=== PATIENT | female | born 1935 | race Caucasian/White ===

== ENCOUNTER 2018-10-06 10:04 | Observation (INO) ==
--- NOTE | 2018-10-06 10:08 | Emergency Department Note ---
Disposition Clinical Impression: Chest pain Qualifiers: Chest pain type: unspecified Qualified Code(s): R07.9 - Chest pain, unspecified Disposition: Admitted As Inpatient Condition: Fair Time of Disposition: 21:06 General Adult HPI - General Stated complaint: CP Time Seen by Provider: 10/06/18 10:08 Source: patient Mode of arrival: ambulatory Limitations: no limitations Nursing Notes Reviewed: Yes Vital Signs Reviewed: Yes - History of Present Illness HPI Narrative: 83-year-old female past medical history of Graves' disease with cardiac ablation due to tachycardia performed 25 years ago patient is also status post 4 months after a hip surgery states that she has had decreased mobilization due to the recent surgical intervention. Patient denies any significant cardiac history since the event. Patient stated that at approximately 7 AM this morning she woke to the bathroom and noticed that she had 5 out of 10 nagging chest pain left side of her chest to the left of for her border of the pectoralis major musculature. Patient states she initially believed this pain was due to heartburn and took 4 Tums which she states mildly relieved her symptoms, however the symptoms then returned. Patient also states she has a history of constipation believe the pain could be due to that as well. Patient denies any radiation of this pain, she denies shortness of breath associated with it or any neurological symptoms including headache dizziness or difficulty with ambulation. Patient's had no abnormal bleeding, no recent fevers or chills no abdominal pain nausea or vomiting. Patient has no other concerns or complaints at this time. Patient states that the pain has been intermittent in nature but is still occurring. - Related Data Home Medications Medication Instructions Recorded Confirmed Acetaminophen [Tylenol Arthritis] 650 mg PO Q4H PRN 10/06/18 10/06/18 Amitriptyline [Elavil] 25 mg PO TID PRN 10/06/18 10/06/18 Furosemide [Lasix] 40 mg PO DAILY 10/06/18 10/06/18 Losartan/Hydrochlorothiazide 1 tab PO DAILY 10/06/18 10/06/18 [Losartan-Hctz 100-12.5 mg Tab] Metoprolol Succinate [Toprol Xl] 25 mg PO DAILY 10/06/18 10/06/18 Mirabegron [Myrbetriq] 50 mg PO DAILY 10/06/18 10/06/18 Multivit-Min/FA/Lycopen/Lutein 1 each PO DAILY 10/06/18 10/06/18 [Centrum Silver Tablet] Non-Formulary Medication 1 each PO BID 10/06/18 10/06/18 [place]-3/Dha/Epa/Fish Oil [Fish Oil 2 each PO BID 10/06/18 10/06/18 1,000 mg Softgel] Oxaprozin [Daypro] 600 mg PO DAILY 10/06/18 10/06/18 Perphenazine 4 mg PO TID PRN 10/06/18 10/06/18 Rosuvastatin Calcium 10 mg PO HS 10/06/18 10/06/18 Spironolactone 25 mg PO DAILY 10/06/18 10/06/18 Ubidecarenone/Vit E Acetate [Co 1 each PO DAILY 10/06/18 10/06/18 Q-10 100 mg Softgel] Vitamin E 400 unit PO DAILY 10/06/18 10/06/18 clonazePAM [Clonazepam] 2 mg PO HS 10/06/18 10/06/18 Allergies Allergy/AdvReac Type Severity Reaction Status Date / Time Sulfa (Sulfonamide Allergy Rash Verified 10/06/18 11:39 Antibiotics) Review of Systems: *See History of Present Illness for more detail Constitutional: Denies: fever, chills Cardiovascular: Admits: chest pain Respiratory: Denies: dyspnea, cough, hemoptysis Gastrointestinal: Denies: abdominal pain, nausea, vomiting, diarrhea, constipation, hematemesis, melena, hematochezia Genitourinary: Denies: hematuria Musculoskeletal: Denies: back pain, neck pain Neurological: Denies: headache, weakness, lightheadedness/dizziness, numbness, paresthesias, difficulty with ambulation. Endocrine: Denies: fatigue All systems ED: reviewed and negative except as stated. Review of Systems: As Per HPI Past Medical History - Past Medical History Medical history: Reports: hypertension Psychiatric history: Reports: no psych history - Social History Smoking Status: Former smoker Smokeless Tobacco Status: No Alcohol use: Reports: none Physical Exam Constitutional: No acute distress, [id number], engaged to conversation, speech is fluid, answers questions appropriately Neuro: GCS 15, no overt focal neurological deficits Head: Atraumatic, normocephalic Eyes: Pupils equal, round and reactive to light, no scleral icterus, no conjunctival injection Neck: Trachea midline without deviation. Anterior neck is supple without swelli ng. *Chest: Symmetric chest wall rise *Heart: Cardiac rhythm and rate are regular with S1 and S2 , no S3 or S4 appreciated, no murmurs, gallops, rubs, or clicks. *Lungs: Lungs are clear to auscultation bilaterally, without accessory muscle use or prolonged expiratory phase. No wheezes, rhonchi or stridor appreciated. Abdomen: Abdomen is flat, soft to palpation, normal bowel sounds. No abdominal bruit auscultated. Non-distended, non-rigid, no organomegaly, no ascites appreciated. No pulsatile mass, no tenderness or guarding to palpation in all four quadrants, no rebound Extremities: Normal capillary refill without evidence of pedal edema, joint swelling or erythema. Pulses/motor intact in all 4 extremities. Psychiatric exam: Patient displays a normal affect and mood for the environment. No overt signs of hallucination. Integumentary: warm, dry, intact, normal color. No rash, cyanosis, diaphoresis, erythema, or pallor - General Limitations: no limitations General appearance: alert, in no apparent distress Course Course Narrative: Basic labs, coags, d-dimer, TSH, Trop CXR, EKG ASA, Nitro - Reevaluation(s) Reevaluation #1: elevated d-dimer - will perform CTA Pt. informed and agrees with this plan. Vital Signs Temperature 98.0 F 10/06/18 10:12 Pulse Rate 84 10/06/18 10:12 Respiratory Rate 16 10/06/18 10:12 Blood Pressure 141/83 10/06/18 10:12 O2 Sat by Pulse Oximetry 100 10/06/18 10:12 Temperature 97.7 F 10/07/18 06:57 Pulse Rate 80 10/07/18 06:57 Respiratory Rate 15 10/07/18 06:57 Blood Pressure 162/74 10/07/18 06:57 O2 Sat by Pulse Oximetry 97 10/07/18 06:57 Oxygen Delivery Oxygen Delivery Room Air Medical Decision Making - MDM Narrative Medical decision making narrative: EKG, Laboratory and Imaging results negative for acute pathology Patient remains hemodynamically stable in ED Will be admitted for CP/ACS r/o Patient verbalizes understanding and agreement with this plan. - Lab Data Lab results reviewed: Yes I reviewed the patient's lab results. Result diagrams: 10/08/18 02:14 10/08/18 02:14 Lab Results 10/06/18 10/06/18 10/06/18 Range/Units 10:35 10:35 10:35 WBC 7.4 (4.3-11.1) K/mcL RBC 4.20 (3.82-4.97) M/mcL Hgb 11.5 (11.5-15.4) g/dL Hct 35.9 (35.3-44.9) % MCV 85.5 (83.0-100.0) fL MCH 27.4 L (28.0-33.3) pg MCHC 32.0 (31.6-35.5) g/dL RDW 15.2 H (11.5-14.5) % Plt Count 209 (140-400) K/mcL MPV 10.6 (9.4-12.4) fL Immature Gran % 0.3 (0-4) % Seg Neutrophils % 70.4 % Lymphocytes % 16.0 % Monocytes % 11.6 % Eosinophils % 1.4 % Basophils % 0.3 % Neutrophils # 5.2 (1.6-8.9) K/mcL Lymphocytes # 1.2 (0.6-4.6) K/mcL Monocytes # 0.9 (0.0-1.3) K/mcL Eosinophils # 0.1 (0.0-0.6) K/mcL Basophils # 0.0 (0.0-0.2) K/mcL PT 13.0 H (9.4-12.1) Seconds INR 1.1 D-Dimer 1406 H (0-500) ng/mLFEU Sodium 138 (136-145) mEq/L Potassium 3.6 (3.5-5.1) mEq/L Chloride 99 (98-107) mEq/L Carbon Dioxide 27 (23-29) mEq/L BUN 31 H (8-23) mg/dL Creatinine 1.11 (0.60-1.20) mg/dL Est GFR ( Amer) 57 L (> 60) Est GFR (Non-Af Amer) 47 L (> 60) BUN/Creatinine Ratio 28 H (6-26) Glucose 117 H (70-105) mg/dL Calculated Osmolality 294 (280-300) Calcium 9.9 (8.6-10.3) mg/dL Troponin I < 0.03 (< 0.04) ng/mL TSH 0.742 (0.340-5.600) mcIU/mL - Radiology Data Radiology results reviewed: Yes I reviewed the patient's radiology results. Chest X-Ray 10/06/18 10:26 IMPRESSION: Low lung volumes. Linear atelectasis at the left lung base. No acute cardiopulmonary disease. D/ / Cl River MD / Cl River MD Interpreting Provider: Cl River MD Chest CTA 10/06/18 11:17 IMPRESSION: No evidence of pulmonary embolism or acute pulmonary abnormality. D/ / Laurence Griggs / Laurence Griggs Interpreting Provider: Laurence Griggs - EKG Data EKG #1 EKG attestation: Yes I reviewed and interpreted this EKG. EKG results narrative: Patient EKG shows a sinus rhythm with a heart rate of 81 bpm CO interval of 166 ms, QT duration 90 ms, QT/QT interval 391/454 ms. There are no significant ST segment elevations, depressions, pathologic Q, abnormal T-wave inversions, or any other signs of acute ischemic change. This EKG performed today is generally consistent with prior EKG performed on 07/19/2018. Attestation Statement - Attestation Attestation: I have seen this patient with the resident physician, I have personally evaluated this patient. I had reviewed the chart and document dictation by the resident physician and aM in agreement with the information documented by the resident physician. Please see documentation by the resident physician for complete chart including past medical history, family medical history, review of systems, current history and physical and laboratory and imaging studies. I was present for all procedures, provided direct supervision for all procedures, was present for the entirety of all procedures and provided direct guidance during the procedures. Please see documentation by the resident physician for any procedures performed. I have reviewed all interpretations of EKGs, and reviewed all EKGs performed on patient's as well. I have also reviewed reports of imaging as provided by radiology.
[2018-10-06] MEDS ORDERED: Aspirin 81 MG TAB.CHEW PO ONE (10:26)
[2018-10-06 10:49] LABS: Basophils % 0.3 %; Eosinophils # 0.1 K/mcL (0.0-0.6); Eosinophils % 1.4 %; Hematocrit 35.9 % (35.3-44.9); Hemoglobin 11.5 g/dL (11.5-15.4); Immature Granulocytes % 0.3 % (0-4); Lymphocytes # 1.2 K/mcL (0.6-4.6); Mean Corpuscular Hemoglobin 27.4 pg (28.0-33.3); Mean Corpuscular Volume 85.5 fL (83.0-100.0); Mean Platelet Volume 10.6 fL (9.4-12.4); Monocytes # 0.9 K/mcL (0.0-1.3); Monocytes % 11.6 %; Neutrophils # 5.2 K/mcL (1.6-8.9); Platelet Count 209 K/mcL (140-400); Red Cell Distribution Width 15.2 % (11.5-14.5); Segmented Neutrophils % 70.4 %; White Blood Count 7.4 K/mcL (4.3-11.1)
[2018-10-06 10:55] LABS: INR 1.1
[2018-10-06] MEDS ORDERED: Nitroglycerin 0.4 MG TAB.SUBL SL PRN (11:00)
[2018-10-06 11:11] LABS: BUN/Creatinine Ratio 28 (6-26); Blood Urea Nitrogen 31 mg/dL (8-23); Calcium 9.9 mg/dL (8.6-10.3); Carbon Dioxide 27 mEq/L (23-29); Chloride 99 mEq/L (98-107); Glucose 117 mg/dL (70-105); Osmolality,Calculated 294 (280-300); Potassium 3.6 mEq/L (3.5-5.1); Sodium 138 mEq/L (136-145); Troponin I < 0.03 ng/mL (< 0.04); eGFR For African Americans 57 (> 60); eGFR For Non-African Americans 47 (> 60)
[2018-10-06] MEDS ORDERED: Isovue-370 500 ML BOTTLE IVP ONE (11:17)
[2018-10-06] MEDS ORDERED: 0.9 % Sodium Chloride 1,000 ML IVC ONE (11:18)
--- NOTE | 2018-10-06 11:22 | Emergency Department Note ---
Disposition Clinical Impression: Chest pain Disposition: Admitted As Inpatient Condition: Fair Referrals: Gatito Dominique MD [Primary Care Provider] - Forms: ED Satisfaction Letter Time of Disposition: 12:40 Chest Pain HPI - General Chief Complaint: ED Chest Pain Stated Complaint: CP Time Seen by Provider: 10/06/18 10:08 Source: patient Mode of arrival: ambulatory Limitations: no limitations Vital Signs Reviewed: Yes Nursing Notes Reviewed: Yes - History of Present Illness Severity scale (1-10): 4 - Related Data Home Medications Medication Instructions Recorded Confirmed [place]-3 Fatty Acids [Fish Oil] 300 mg PO 08/07/15 Perphenazine/Amitriptyline HCl 4 - 25 mg PO TID 08/07/15 [Perphen-Amitrip 4 mg-10 mg Tab] Potassium Chloride [Klor-Con 10 meq PO 08/07/15 Sprinkle] Rosuvastatin Calcium [Crestor] 10 mg PO DAILY 08/07/15 Klonopin 1 mg PO DAILY 04/26/18 04/26/18 Lasix 20 mg PO DAILY 04/26/18 04/26/18 Losartan-Hctz 100-25 mg Tab 12.5 - 100 mg PO DAILY 04/26/18 04/26/18 Metoprolol Succinate 50 mg PO DAILY 04/26/18 04/26/18 Myrbetriq 50 mg PO DAILY 04/26/18 04/26/18 Amitriptyline HCl 06/06/18 Klonopin 06/06/18 Lasix 06/06/18 Losartan-Hctz 100-12.5 mg Tab 06/06/18 Metoprolol 06/06/18 Perphenazine 06/06/18 Potassium 06/06/18 Previous Rx's Medication Instructions Recorded Azithromycin [Azithromycin 6-Tab 250 mg PO PER PKG DI #6 tab 06/06/18 Pack] Nitrofurantoin Macrocrystal 100 mg PO BID #10 capsule 07/19/18 [Nitrofurantoin] Allergies Allergy/AdvReac Type Severity Reaction Status Date / Time Sulfa (Sulfonamide Allergy Rash Verified 10/06/18 11:39 Antibiotics) Chest Pain PMH - Past Medical History Medical history: Reports: GERD, hypertension, thyroid disease, other Psychiatric history: Reports: no psych history - Social History Smoking Status: Former smoker Alcohol use: Reports: rarely Drug use: Reports: none Physical Exam - General Limitations: no limitations General appearance: alert, in no apparent distress Course Vital Signs Temperature 98.0 F 10/06/18 10:12 Pulse Rate 84 10/06/18 10:12 Respiratory Rate 16 10/06/18 10:12 Blood Pressure 141/83 10/06/18 10:12 O2 Sat by Pulse Oximetry 100 10/06/18 10:12 Temperature 98.0 F 10/06/18 10:12 Pulse Rate 80 10/06/18 12:26 Respiratory Rate 16 10/06/18 10:12 Blood Pressure 112/59 10/06/18 12:26 O2 Sat by Pulse Oximetry 95 10/06/18 12:26 Oxygen Delivery Oxygen Delivery Room Air Chest Pain - Lab Data Result diagrams: 10/06/18 10:35 10/06/18 10:35 Lab Results 10/06/18 10/06/18 10/06/18 Range/Units 10:35 10:35 10:35 WBC 7.4 (4.3-11.1) K/mcL RBC 4.20 (3.82-4.97) M/mcL Hgb 11.5 (11.5-15.4) g/dL Hct 35.9 (35.3-44.9) % MCV 85.5 (83.0-100.0) fL MCH 27.4 L (28.0-33.3) pg MCHC 32.0 (31.6-35.5) g/dL RDW 15.2 H (11.5-14.5) % Plt Count 209 (140-400) K/mcL MPV 10.6 (9.4-12.4) fL Immature Gran % 0.3 (0-4) % Seg Neutrophils % 70.4 % Lymphocytes % 16.0 % Monocytes % 11.6 % Eosinophils % 1.4 % Basophils % 0.3 % Neutrophils # 5.2 (1.6-8.9) K/mcL Lymphocytes # 1.2 (0.6-4.6) K/mcL Monocytes # 0.9 (0.0-1.3) K/mcL Eosinophils # 0.1 (0.0-0.6) K/mcL Basophils # 0.0 (0.0-0.2) K/mcL PT 13.0 H (9.4-12.1) Seconds INR 1.1 D-Dimer 1406 H (0-500) ng/mLFEU Sodium 138 (136-145) mEq/L Potassium 3.6 (3.5-5.1) mEq/L Chloride 99 (98-107) mEq/L Carbon Dioxide 27 (23-29) mEq/L BUN 31 H (8-23) mg/dL Creatinine 1.11 (0.60-1.20) mg/dL Est GFR ( Amer) 57 L (> 60) Est GFR (Non-Af Amer) 47 L (> 60) BUN/Creatinine Ratio 28 H (6-26) Glucose 117 H (70-105) mg/dL Calculated Osmolality 294 (280-300) Calcium 9.9 (8.6-10.3) mg/dL Troponin I < 0.03 (< 0.04) ng/mL Heart Score - Score History: Moderately Suspicious EKG: Non Specific repolarisation Disturbance Age: Greater than 65 Risk Factors: 1-2 risk factors Troponin: Less than normal limit HEART Score Total: 5 Attestation Statement - Attestation Attestation: I have seen this patient with the resident physician, I have personally evalua jessica this patient. I had reviewed the chart and document dictation by the resident physician and aM in agreement with the information documented by the resident physician. Please see documentation by the resident physician for complete chart including past medical history, family medical history, review of systems, current history and physical and laboratory and imaging studies. I was present for all procedures, provided direct supervision for all procedures, was present for the entirety of all procedures and provided direct guidance during the procedures. Please see documentation by the resident physician for any procedures performed. I have reviewed all interpretations of EKGs, and reviewed all EKGs performed on patient's as well. I have also reviewed reports of imaging as provided by radiology. Patient presented to the emergency department with chief complaint of left-sided chest pain. She states that she does not think it woke her up from sleep but she noticed it when she woke up to go to the bathroom. She describes as a left- sided sharp stabbing chest pain, some very mild burning and pressure associated with it but more sharp in nature. She states that she thinks maybe her to take a deep breath but she is not sure. She did not feel short of breath she did not get dizzy nauseated or diaphoretic. She has never experienced anything like this in the past. She thought maybe it was indigestion she took some Tums that did not help she thought maybe she was constipated although she had no abdominal symptoms, and she ate some prunes and this did not help. Eventually the pain did start to diminish but is still present although much less intense. She s tates that currently it does not hurt to take a deep breath. She is 4 months post hip replacement surgery has had some bilateral lower extremity swelling for which she has been on Lasix and spironolactone. She states that she has had no unilateral swelling calf pain. She has no history of blood clots. She denies fevers chills cough or sputum production. EKG was normal sinus rhythm with no evidence of acute ischemic dysrhythmia hyperkalemia or acute change from prior EKG as interpreted by myself. On physical examination, she does have evidence of her history of Graves' disease with some mild proptosis. Appears to potential thyromegaly. No obvious JVD. Lungs are clear heart is regular 2/6 systolic murmur no rubs or gallops no tachycardia. Abdomen is soft and nontender. There is trace bilateral lower extremity edema without unilateral swelling palpable cord calf tenderness Homans sign or clinical evidence of DVT there are normal pulses in all 4 extremities skin is warm dry without rash or petechiae. Chest x-ray showed no acute findings as interpreted by radiology. CBC basic metabolic profile cardiac enzymes were all within acceptable limits. Secondary to the patient expressing U Sharp left-sided chest pain, and having surgery within the last 4 months, being a little bit less mobile, she is greater than 3 months out from surgery had no shortness of breath is not tachycardic or hypoxic therefore I felt a d-dimer was appropriate for a rule out, however the d-dimer was elevated at over [address] PE protocol was ordered. She was given aspirin. She was given fluids. CT PE protocol showed no acute abnormality. She is 83 years old with new onset of left-sided chest pain that she has never expressed the past, she will be admitted for further evaluation and management
[2018-10-06 13:37] LABS: Thyroid Stimulating Hormone 0.742 mcIU/mL (0.340-5.600)
[2018-10-06] MEDS ORDERED: Naloxone 0.4 MG/ML INJ IVP PRN ×2 (14:45→14:47)
[2018-10-06] MEDS ORDERED: *HR* HYDROcodone/Acet 5/325 mg TABLET PO PRN (14:47)
[2018-10-06] MEDS ORDERED: Acetaminophen 325 MG TABLET PO PRN (14:47)
--- NOTE | 2018-10-06 14:54 | Internal Med History&Physical ---
Date of Encounter: 10/06/18 Time of Encounter: 14:50 Internal Medicine - H&P: HPI Chief complaint: CP Admitted From: Emergency Dept Plans for Post Hospital Care: Home History of present illness: Ms. Sweeney is a 83 year old female with history of Graves' disease hypertension cardiac ablation secondary tachycardia performed approximately 25 years ago status post hip surgery approximately 4 months ago. Patient presented to [facility] ED with complaints of sudden onset of chest pain. According to the patient approximate 7 AM this morning she awoke to go to the bathroom when she does she had 5 out of 10 nagging intermittent chest pain the left side of her chest patient states that she initially thought it was heartburn and took some Tums without any relief. Her symptoms returned and again thought she was constipated so she ate some prunes. Patient states the pain was worse on inspiration with no associated symptoms including shortness of breath lightheadedness or palpitations. She presented to the ER with the above complaints. Patient states she was given baby aspirin and felt that her chest pain improved. Patient has not had any cardiac workup in the past except for an ablation approximately 25 years ago no stent placements. Troponin was negative d-dimer was elevated she underwent a CTA which was negative for PE TSH within normal limits, ther is no EKG to review will obtain EKG. currently patient is chest pain-free I did discuss CODE STATUS the patient to express that she would like to be DNR CCA DNI Past Med Surg Social Fam HX - Past Medical History Medical history: GERD, hypertension, thyroid disease, other Additional medical history: Grave's Disease Psychiatric history: no psych history - Past Surgical History Additional surgical history: right hip replacement. lumpectomy bilateral breasts. cardiac ablation - Social History Smoking Status: Former smoker Smokeless Tobacco Status: No Alcohol use: rarely Drug use: none - Family History Mother Living Status: Hx Family Cardiac Disorders: Yes (CHF CAD) Father Living Status: Hx Family Respiratory Disorders: Yes (COPD) Internal Medicine - H&P: Meds Acetaminophen [Tylenol Arthritis] 650 mg PO Q4H PRN 10/06/18 [History] Amitriptyline [Elavil] 25 mg PO TID PRN 10/06/18 [History] Furosemide [Lasix] 40 mg PO DAILY 10/06/18 [History] Losartan/Hydrochlorothiazide [Losartan-Hctz 100-12.5 mg Tab] 1 tab PO DAILY 10/06/18 [History] Metoprolol Succinate [Toprol Xl] 25 mg PO DAILY 10/06/18 [History] Mirabegron [Myrbetriq] 50 mg PO DAILY 10/06/18 [History] Multivit-Min/FA/Lycopen/Lutein [Centrum Silver Tablet] 1 each PO DAILY 10/06/18 [History] Non-Formulary Medication 1 each PO BID 10/06/18 [History] [place]-3/Dha/Epa/Fish Oil [Fish Oil 1,000 mg Softgel] 2 each PO BID 10/06/18 [History] Oxaprozin [Daypro] 600 mg PO DAILY 10/06/18 [History] Perphenazine 4 mg PO TID PRN 10/06/18 [History] Rosuvastatin Calcium 10 mg PO HS 10/06/18 [History] Spironolactone 25 mg PO DAILY 10/06/18 [History] Ubidecarenone/Vit E Acetate [Co Q-10 100 mg Softgel] 1 each PO DAILY 10/06/18 [History] Vitamin E 400 unit PO DAILY 10/06/18 [History] clonazePAM [Clonazepam] 2 mg PO HS 10/06/18 [History] Allergy/AdvReac Type Severity Reaction Status Date / Time Sulfa (Sulfonamide Allergy Rash Verified 10/06/18 11:39 Antibiotics) All Systems PM: A 10-system review of systems was performed and is negative for pertinent findin gs except as documented above in the HPI. - Constitutional Constitutional: no chills, no fever(s), no night sweats - EENT Eyes: no change in vision, no discharge, no pain, no photophobia Ears: no ear discharge, no ear pain, no tinnitus Nose, mouth and throat: no dysphagia, no nasal discharge, no neck pain, no sore throat - Cardiovascular Cardiovascular ROS IM: chest pain, no diaphoresis, no dyspnea, no lightheadedness, no palpitations, no syncope - Respiratory Respiratory: no cough, no dyspnea, no wheezing, no excessive phlegm production - Gastrointestinal Gastrointestinal: no abdominal pain, no diarrhea, no hematemesis, no hematochezia, no melena, no nausea, no vomiting - Genitourinary Genitourinary: no change in urinary stream, no dysuria, no flank pain, no hematuria - Musculoskeletal Musculoskeletal ROS IM: no numbness, no tingling - Integumentary Integumentary IM: no rash, no unusual bruising - Neurological Neurological ROS: no confusion, no convulsions, no focal weakness, no numbness, no tingling, no tremor(s) - Hematologic/Lymphatic Hematologic/Lymphatic: no easy bruising - Constitutional Vitals: Temp Pulse Resp BP Pulse Ox 98.0 F 80 18 125/61 95 10/06/18 10:12 10/06/18 12:26 10/06/18 13:39 10/06/18 13:39 10/06/18 12:26 Exam: Skin: Free of rash and discoloration. Eyes: Sclera is white. There is no discharge from eyes. ENMT: Oral/pharyngeal mucosa is normal in appearance. There is no discharge from nose or ears. Respiratory: Normal breath sounds with no crackles and wheezes bilaterally. CV: Heart is regular with no gallop or murmur. GI: Abdomen is flat and soft with no palpable mass or visceromegaly. : There is no tenderness in patient's flanks bilaterally. Neuro exam: He has good strength in upper and lower extremities. He has normal eye movements. Psychiatric: He has normal affect. His thought process is appropriate to the situation. Internal Med - H&P Results - Labs CBC & Chem 7: 10/06/18 10:35 10/06/18 10:35 Labs: Short CBC 10/06/18 Range/Units 10:35 WBC 7.4 (4.3-11.1) K/mcL Hgb 11.5 (11.5-15.4) g/dL Hct 35.9 (35.3-44.9) % Plt Count 209 (140-400) K/mcL Neutrophils # 5.2 (1.6-8.9) K/mcL BMP 10/06/18 10:35 Sodium 138 Potassium 3.6 Chloride 99 Carbon Dioxide 27 BUN 31 H Creatinine 1.11 Glucose 117 H Calcium 9.9 Cardiac Enzymes 10/06/18 Range/Units 10:35 Troponin I < 0.03 (< 0.04) ng/mL - Impressions ITS Impressions Chest X-Ray 10/06/18 10:26 IMPRESSION: Low lung volumes. Linear atelectasis at the left lung base. No acute cardiopulmonary disease. D/ / Cl River MD / Cl River MD Interpreting Provider: Cl River MD Chest CTA 10/06/18 11:17 IMPRESSION: No evidence of pulmonary embolism or acute pulmonary abnormality. D/ / Laurence Griggs / Laurence Griggs Interpreting Provider: Laurence Griggs - Assessment and Plan (1) Chest pain Current Visit: Yes Status: Acute Assessment and plan: Patient experienced left-sided chest pain which was intermittent and worse on inspiration relieved with baby aspirin. First set of troponins were negative continue to trend troponins Continue with aspirin and metoprolol and nitroglycerin as needed for chest pain Obtain cardiac echo Make nothing by mouth after midnight if everything is negative patient can undergo stress test in a.m. Qualifiers: Chest pain type: unspecified Qualified Code(s): R07.9 - Chest pain, unspecified (2) HTN (hypertension) Current Visit: No Status: Chronic Assessment and plan: Continue home medications Qualifiers: Hypertension type: essential hypertension Qualified Code(s): I10 - Essential (primary) hypertension (3) Graves disease Current Visit: Yes Status: Acute Assessment and plan: Patient follows with Dr. Pate TSH within normal limits patient will follow-up as outpatient (4) Tachycardia Current Visit: No Status: Chronic Assessment and plan: Patient had tachycardia and underwent ablation approximately 25 years ago continue with metoprolol and he is cardiac monitoring (5) DVT prophylaxis Current Visit: Yes Status: Acute Assessment and plan: Heparin subcutaneous - Time Spent With Patient Total time spent is greater than 50% in coordination of care (as documented) at patient's floor/unit and/or counseling patient:
--- NOTE | 2018-10-06 15:09 | Electrocardiograph Report ---
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
[2018-10-06] MEDS: *HR* Heparin 5,000 UNIT/ML VIAL SQ SCH (17:17)
[2018-10-06] MEDS: clonazePAM 1 MG TABLET PO SCH (20:25)
[2018-10-07] MEDS: *HR* Heparin 5,000 UNIT/ML VIAL SQ SCH (04:49)
[2018-10-07] MEDS ORDERED: NON-FORMULARY MEDICATION 1 EACH EACH (Losartan/Hydrochlorothiazide [Losartan-Hctz 100-12.5 PO SCH (09:00)
[2018-10-07] MEDS ORDERED: Diclofenac Sodium (24 HR) 100 MG TABLET PO SCH (09:00)
[2018-10-07] MEDS: Furosemide 40 MG TABLET PO SCH (09:25)
[2018-10-07] MEDS: Aspirin 81 MG TAB.CHEW PO SCH (09:25)
[2018-10-07] MEDS: Metoprolol XL (24 HR) Succ 25 MG TAB.ER.24H PO SCH (09:25)
[2018-10-07] MEDS: Multivit/Ca/Min/Fe/FA 1 TAB TABLET PO SCH (09:25)
[2018-10-07 09:26] LABS: Basophils % 0.2 %; Eosinophils # 0.1 K/mcL (0.0-0.6); Eosinophils % 2.5 %; Hematocrit 34.3 % (35.3-44.9); Hemoglobin 10.7 g/dL (11.5-15.4); Immature Granulocytes % 0.2 % (0-4); Lymphocytes # 1.6 K/mcL (0.6-4.6); Lymphocytes % 39.7 %; Mean Corpuscular HGB Conc 31.2 g/dL (31.6-35.5); Mean Corpuscular Hemoglobin 26.4 pg (28.0-33.3); Mean Corpuscular Volume 84.5 fL (83.0-100.0); Monocytes # 0.6 K/mcL (0.0-1.3); Neutrophils # 1.7 K/mcL (1.6-8.9); Platelet Count 196 K/mcL (140-400); Red Blood Count 4.06 M/mcL (3.82-4.97); Segmented Neutrophils % 42.4 %
[2018-10-07] MEDS: Spironolactone 25 MG TABLET PO SCH (09:26)
[2018-10-07] MEDS: hydroCHLOROthiazide 25 MG TABLET PO SCH (09:26)
[2018-10-07] MEDS: (Ubidecarenone/Vit E Acetate [Co Q-10 100 Mg Softgel] PO SCH (09:27)
[2018-10-07] MEDS: (Mirabegron [Myrbetriq] 50 MG) PO SCH (09:28)
[2018-10-07] MEDS: Perphenazine 2 MG TABLET PO PRN ×2 (09:38→21:24)
[2018-10-07 09:47] LABS: BUN/Creatinine Ratio 21 (6-26); Blood Urea Nitrogen 15 mg/dL (8-23); Carbon Dioxide 26 mEq/L (23-29); Chloride 105 mEq/L (98-107); Chol/HDL Ratio 2.5 (0-4.9); Cholesterol 121 mg/dL (< 200); Glucose 93 mg/dL (70-105); HDL Cholesterol 48 mg/dL (40-59); LDL Cholesterol,Calculated 47 mg/dL (0-99); Magnesium 1.6 mg/dL (1.6-2.6); Osmolality,Calculated 295 (280-300); Potassium 3.3 mEq/L (3.5-5.1); Sodium 142 mEq/L (136-145); Triglycerides 129 mg/dL (< 150); eGFR For African Americans > 60 (> 60); eGFR For Non-African Americans > 60 (> 60)
--- NOTE | 2018-10-07 11:43 | Discharge Summary ---
- NOTES TO OUTPATIENT PROVIDER Notes to Outpatient Provider: Presented with chest pain -underwent stress test which was negative for any ischemia or infarct. Cardiac echo did not show Lambl's excrescence- underwent LUKE which confirmed - no vegetation - placed on ASA. Follow up with cardiology Orders not resulted at time of discharge: Pending orders 10/06/18 15:55 EKG [ECG 12 lead ECG] [ECG] Stat 10/07/18 06:00 ECG 12 lead ECG [ECG] AM 0600 Date of Encounter: 10/09/18 Time of Encounter: 13:42 - Discharge Diagnosis (1) Chest pain Priority: Primary Status: Acute Qualifiers: Chest pain type: unspecified Qualified Code(s): R07.9 - Chest pain, unspecified (2) HTN (hypertension) Priority: Secondary Status: Chronic Qualifiers: Hypertension type: essential hypertension Qualified Code(s): I10 - Essential (primary) hypertension (3) Graves disease Priority: Secondary Status: Acute (4) Tachycardia Priority: Secondary Status: Chronic (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 Sweeney is a 83 year old female past medical history of hypertension Graves' disease cardiac ablation secondary tachycardia performed approximately 25 years ago post hip surgery approximately 4 months ago. Patient presented to [facility] ED with complaints of sudden onset of chest pain left side of her chest states that she initially thought was heartburn and took some Tums without any relief and she thought she was constipated and chai improves without any relief. Patient states the pain was worse on inspiration but no associated symptoms included shortness of breath lightheadedness or palpitation. She was given a baby aspirin which did improve her chest pain. She has not had any previous cardiac workup in the past and does have a history of tachycardia ablation. CTA was negative for any PE TSH was within normal limits EKG with no ST-T wave abnormalities troponins were negative 3. Cardiac echo was completed which did reveal mildly sclerotic aortic valve leaflet very small somewhat mobile echodensity observed associated with the NCC of the aortic valve may represent lambls Excrescence -discussed with the family and patient no current focal deficits no signs and symptoms of fever or infectious process. Daughter is concerned because she noticed patient has been experiencing episodes of slurred speech off and on for the past few weeks. Obtain CT of head which was negative for any acute or remote. Patient underwent LUKE which did confirm Lambls Excrescence and no vegetation. Patient was initiated on aspirin-at bedtime underwent cardiac stress test which was negative for any ischemia or infarct. Patient is advised follow primary care physician as well as cardiology as outpatient. Patient verbalizes understanding currently chest pain-free and hemodynamically stable at this time and ready for discharge - Time Spent with Patient Total time spent providing and/or coordinating discharge services: - Discharge Medications Prescriptions: New Aspirin 81 mg PO DAILY #30 tab.chew Continued Acetaminophen [Tylenol Arthritis] 650 mg PO Q4H PRN PRN Reason: Pain Amitriptyline [Elavil] 25 mg PO TID PRN PRN Reason: Anxiety clonazePAM [Clonazepam] 2 mg PO HS Furosemide [Lasix] 40 mg PO DAILY Losartan/Hydrochlorothiazide [Losartan-Hctz 100-12.5 mg Tab] 1 tab PO DAILY Metoprolol Succinate [Toprol Xl] 25 mg PO DAILY [place]-3/Dha/Epa/Fish Oil [Fish Oil 1,000 mg Softgel] 2 each PO BID Oxaprozin [Daypro] 600 mg PO DAILY Perphenazine 4 mg PO TID PRN PRN Reason: Anxiety Rosuvastatin Calcium 10 mg PO HS Spironolactone 25 mg PO DAILY No Action Mirabegron [Myrbetriq] 50 mg PO DAILY Multivit-Min/FA/Lycopen/Lutein [Centrum Silver Tablet] 1 each PO DAILY Non-Formulary Medication 1 each PO BID Ubidecarenone/Vit E Acetate [Co Q-10 100 mg Softgel] 1 each PO DAILY Vitamin E 400 unit PO DAILY Home Medications: Acetaminophen [Tylenol Arthritis] 650 mg PO Q4H PRN 10/06/18 [History] Amitriptyline [Elavil] 25 mg PO TID PRN 10/06/18 [History] Furosemide [Lasix] 40 mg PO DAILY 10/06/18 [History] Losartan/Hydrochlorothiazide [Losartan-Hctz 100-12.5 mg Tab] 1 tab PO DAILY 10/06/18 [History] Metoprolol Succinate [Toprol Xl] 25 mg PO DAILY 10/06/18 [History] Mirabegron [Myrbetriq] 50 mg PO DAILY 10/06/18 [History] Multivit-Min/FA/Lycopen/Lutein [Centrum Silver Tablet] 1 each PO DAILY 10/06/18 [History] Non-Formulary Medication 1 each PO BID 10/06/18 [History] [place]-3/Dha/Epa/Fish Oil [Fish Oil 1,000 mg Softgel] 2 each PO BID 10/06/18 [History] Oxaprozin [Daypro] 600 mg PO DAILY 10/06/18 [History] Perphenazine 4 mg PO TID PRN 10/06/18 [History] Rosuvastatin Calcium 10 mg PO HS 10/06/18 [History] Spironolactone 25 mg PO DAILY 10/06/18 [History] Ubidecarenone/Vit E Acetate [Co Q-10 100 mg Softgel] 1 each PO DAILY 10/06/18 [History] Vitamin E 400 unit PO DAILY 10/06/18 [History] clonazePAM [Clonazepam] 2 mg PO HS 10/06/18 [History] Aspirin 81 mg PO DAILY #30 tab.chew 10/09/18 [Rx] Allergies/Adverse Reactions: Allergy/AdvReac Type Severity Reaction Status Date / Time Sulfa (Sulfonamide Allergy Rash Verified 10/06/18 11:39 Antibiotics) Date of admission: 10/06/18 13:35 Primary care physician: Gatito Dominique MD Discharging clinician: Gemma Barraza Anticipated date of discharge: 10/09/18 - Constitutional Vitals: Temp Pulse Resp BP Pulse Ox 97.9 F 75 16 125/68 95 10/07/18 11:22 10/07/18 11:22 10/07/18 11:22 10/07/18 11:22 10/07/18 11:22 Exam: Skin: Free of rash and discoloration. Eyes: Sclera is white. There is no discharge from eyes. ENMT: Oral/pharyngeal mucosa is normal in appearance. There is no discharge from nose or ears. Respiratory: Normal breath sounds with no crackles and wheezes bilaterally. CV: Heart is regular with no gallop or murmur. GI: Abdomen is flat and soft with no palpable mass or visceromegaly. : There is no tenderness in patient's flanks bilaterally. Neuro exam: He has good strength in upper and lower extremities. He has normal eye movements. Psychiatric: He has normal affect. His thought process is appropriate to the situation. - Patient Status Disposition: Home, Self-Care Condition: Fair Functional capacity at discharge: independent ambulation Overall status at discharge: patient is back to baseline - Discharge Instructions Instructions: Transient Ischemic Attack (GEN), Self Care Measures After a Stroke (GEN) Follow Up With: Gatito Dominique MD [Primary Care Provider] - 10/14/18 1:00 pm () - Diet and Activity Activity: increase activity as tolerated Diet: low fat, low cholesterol, low salt diet
--- NOTE | 2018-10-07 12:02 | Internal Med Progress Note ---
Hospitalist Progress Note - Encounter Date of Encounter: 10/07/18 Time of Encounter: 12:02 - Subjective Interval History: Patient was seen and examined at bedside. I did discuss results of cardiac echo with the patient and daughter who was at bedside - reviewed echo results Very small, somewhat mobile echo-density observed associated with the NCC of the aortic valve may represent Lambl's Excrescence. Currently does not display any focal deficits- however daughter does state that she has noticed patient does slur speech occasionally which has been occurring over the past few weeks off and on. Patient does not have any fever or white count this signs of bleeding or history of bleeding no recent loss or head trauma most recent surgery occurred in June. Discussed echo findings with cardiology recommending LUKE -if clinically indicat ed - Exam Vitals: Temp Pulse Resp BP Pulse Ox 97.9 F 75 16 125/68 95 10/07/18 11:22 10/07/18 11:22 10/07/18 11:22 10/07/18 11:22 10/07/18 11:22 Exam: Skin: Free of rash and discoloration. Eyes: Sclera is white. There is no discharge from eyes. ENMT: Oral/pharyngeal mucosa is normal in appearance. There is no discharge from nose or ears. Respiratory: Normal breath sounds with no crackles and wheezes bilaterally. CV: Heart is regular with no gallop or murmur. GI: Abdomen is flat and soft with no palpable mass or visceromegaly. : There is no tenderness in patient's flanks bilaterally. Neuro exam: He has good strength in upper and lower extremities. He has normal eye movements. Psychiatric: He has normal affect. His thought process is appropriate to the situation. - Assessment and Plan (1) Chest pain Current Visit: Yes Status: Acute Assessment and Plan: Patient experienced left-sided chest pain which was intermittent and worse on inspiration relieved with baby aspirin. Troponins negative 3 EKG with no acute ST-T wave abnormalities Continue with aspirin and metoprolol and nitroglycerin as needed for chest pain cardiac echo LVEF 65%. Mild left ventricular diastolic dysfunction. Normal right ventricular structure and function. Mild aortic regurgitation. Mildly sclerotic aortic valve leaflets. Very small, somewhat mobile echo-density observed associated with the NCC of the aortic valve may represent Lambl's Excrescence. Recommend clinical correlation. Mild tricuspid regurgitation. Mild pulmonic regurgitation. No pulmonary hypertension. (2) HTN (hypertension) Current Visit: No Status: Chronic Assessment and Plan: Continue home medications (3) Graves disease Current Visit: Yes Status: Acute Assessment and Plan: Patient follows with Dr. 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 Very small, somewhat mobile echo-density observed associated with the NCC of the aortic valve may represent Lambl's Excrescence. Recommend clinical correlation. Discussed findings with cardiology recommending LUKE if clinically indicated Currently patient is a focal deficits however does endorse patient experiencing episodes of slurred speech at times occurring briefly over the past few weeks. We will continue with aspirin Give 1 dose of lovenox 1mg per kg for anticoagulation Discussed finding with patient and daughter who are in agreement with LUKE- patient will be nothing by mouth after midnight for possible LUKE in a.m. We will check CT of head without contrast for any possible infarct/bleed acute or remote - Time Spent with Patient Total time spent is greater than 50% in coordination of care (as documented) at patient's floor/unit and/or counseling patient: Internal Medicine: Result - Labs CBC & Chem 7: 10/07/18 08:43 10/07/18 08:43 Labs: Short CBC 10/07/18 Range/Units 08:43 WBC 4.0 L (4.3-11.1) K/mcL Hgb 10.7 L (11.5-15.4) g/dL Hct 34.3 L (35.3-44.9) % Plt Count 196 (140-400) K/mcL Neutrophils # 1.7 (1.6-8.9) K/mcL BMP 10/07/18 08:43 Sodium 142 Potassium 3.3 L Chloride 105 Carbon Dioxide 26 BUN 15 Creatinine 0.72 Glucose 93 Calcium 9.0 Cardiac Enzymes 10/06/18 10/06/18 Range/Units 15:58 21:33 Troponin I < 0.03 < 0.03 (< 0.04) ng/mL - ABG Interpretation ABG results: PT/INR, D-dimer PT 13.0 Seconds (9.4-12.1) H 10/06/18 10:35 1406 ng/mLFEU (0-500) H 10/06/18 10:35 - Impressions Impressions Chest CTA 10/06/18 11:17 IMPRESSION: No evidence of pulmonary embolism or acute pulmonary abnormality. D/ / Laurence Griggs / Laurence Griggs Interpreting Provider: Laurence Griggs Echocardiogram 10/06/18 14:49 Impressions: LVEF 65%. Mild left ventricular diastolic dysfunction. Normal right ventricular structure and function. Mild aortic regurgitation. Mildly sclerotic aortic valve leaflets. Very small, somewhat mobile echo-density observed associated with the NCC of the aortic valve may represent Lambl's Excrescence. Recommend clinical correlation. Mild tricuspid regurgitation. Mild pulmonic regurgitation. No pulmonary hypertension. Left Ventricular Wall Motion: Rest Echo Findings All wall segments showed normal motion. Findings: Study Quality * Technically adequate exam. ECG Findings * Normal sinus rhythm. Left Ventricle * LVEF 65%. * Mild left ventricular diastolic dysfunction. * Normal LV chamber size, wall thickness and function. Right Ventricle * Normal right ventricular structure and function. Left Atrium * Mildly dilated left atrium. Right Atrium * Normal right atrial size. Aortic Valve * Mild aortic regurgitation. * Trileaflet aortic valve. * Mildly sclerotic aortic valve leaflets. * No aortic stenosis. * Very small, somewhat mobile echodensity observed associated with the NCC of the aortic valve may represent Lambl's Excrescence. Mitral Valve * No mitral regurgitation. * Normal mitral valve structure. * No mitral stenosis. Tricuspid Valve * Normal tricuspid valve structure. * Mild tricuspid regurgitation. * Estimated RA pressure is 3 mmHg. * Estimated RVSP is 27 mmHg. * No pulmonary hypertension. Pulmonic Valve * Pulmonic valve is not well visualized. * No pulmonic stenosis. * Mild pulmonic regurgitation. Pulmonary Artery * Pulmonary artery not well visualized. Aorta * Normally sized aortic root. Pericardium * There is no pericardial effusion present. Interatrial Septum * No evidence of PFO by color Doppler. IVC * Normal IVC dimensions and inspiratory collapse. Consult Discharge Plan - Plan Instructions: Transient Ischemic Attack (GEN), Self Care Measures After a Stroke (GEN) Referrals: Gatito Dominique MD [Primary Care Provider] - (Appt has been requested. ) (1) Chest pain Qualifiers: Chest pain type: unspecified Qualified Code(s): R07.9 - Chest pain, unspecified (2) HTN (hypertension) Qualifiers: Hypertension type: essential hypertension Qualified Code(s): I10 - Essential (primary) hypertension
[2018-10-07] MEDS ORDERED: *HR* Enoxaparin 80 MG/0.8 ML SYRINGE SQ STA (15:17)
[2018-10-07] MEDS: clonazePAM 1 MG TABLET PO SCH (21:16)
[2018-10-07] MEDS: Erythromycin OPTH Oint BOTH EYES SCH (22:00)
[2018-10-07] MEDS: LOTEMAX 0.5% PO SCH (22:00)
[2018-10-07] MEDS ORDERED: ERYTHROMYCIN 0.5% PO SCH (22:00)
[2018-10-08 02:48] LABS: Basophils % 0.4 %; Eosinophils # 0.1 K/mcL (0.0-0.6); Eosinophils % 2.6 %; Hematocrit 33.6 % (35.3-44.9); Hemoglobin 10.7 g/dL (11.5-15.4); Immature Granulocytes % 0.2 % (0-4); Lymphocytes # 1.9 K/mcL (0.6-4.6); Lymphocytes % 38.4 %; Mean Corpuscular HGB Conc 31.8 g/dL (31.6-35.5); Mean Corpuscular Hemoglobin 27.1 pg (28.0-33.3); Mean Corpuscular Volume 85.1 fL (83.0-100.0); Mean Platelet Volume 10.8 fL (9.4-12.4); Monocytes # 0.6 K/mcL (0.0-1.3); Monocytes % 12.8 %; Neutrophils # 2.2 K/mcL (1.6-8.9); Platelet Count 199 K/mcL (140-400); Red Blood Count 3.95 M/mcL (3.82-4.97); Red Cell Distribution Width 15.1 % (11.5-14.5); Segmented Neutrophils % 45.6 %; White Blood Count 4.9 K/mcL (4.3-11.1)
[2018-10-08 02:55] LABS: INR 1.1; Prothrombin Time 12.4 Seconds (9.4-12.1)
[2018-10-08 03:10] LABS: Calcium 9.1 mg/dL (8.6-10.3); Potassium 3.9 mEq/L (3.5-5.1)
[2018-10-08] MEDS: LOTEMAX 0.5% PO SCH ×2 (08:04→21:23)
[2018-10-08] MEDS ORDERED: *HR* Midazolam HCl 2 MG/2 ML VIAL IVP PRN (09:36)
[2018-10-08] MEDS ORDERED: 0.9 % Sodium Chloride 500 ML IVC ONE (09:36)
[2018-10-08] MEDS ORDERED: Lidocaine Viscous Oral Soln 15 ML SOLUTION MM PRN (09:36)
[2018-10-08] MEDS: *HR* FentaNYL (PF) 100 MCG/2 ML VIAL IVP PRN ×2 (10:10→10:15)
[2018-10-08] MEDS: *HR* Midazolam HCl 5 MG/5 ML VIAL IVP ONE ×2 (10:10→10:15)
[2018-10-08] MEDS: Furosemide 40 MG TABLET PO SCH (11:48)
[2018-10-08] MEDS: Spironolactone 25 MG TABLET PO SCH (11:48)
[2018-10-08] MEDS: hydroCHLOROthiazide 25 MG TABLET PO SCH (11:48)
[2018-10-08] MEDS: Aspirin 81 MG TAB.CHEW PO SCH (11:49)
[2018-10-08] MEDS: Multivit/Ca/Min/Fe/FA 1 TAB TABLET PO SCH (11:49)
[2018-10-08] MEDS: Metoprolol XL (24 HR) Succ 25 MG TAB.ER.24H PO SCH (11:49)
[2018-10-08] MEDS: Perphenazine 2 MG TABLET PO PRN ×2 (11:56→21:22)
--- NOTE | 2018-10-08 14:31 | Internal Med Progress Note ---
Hospitalist Progress Note - Encounter Date of Encounter: 10/08/18 Time of Encounter: 14:19 - Subjective Interval History: Patient was seen and examined at bedside currently denies any chest pain or shortness of breath she has returned from LUKE and has tolerated procedure well results are pending at this time - Exam Vitals: Temp Pulse Resp BP Pulse Ox 97.8 F 73 15 129/85 96 10/08/18 11:20 10/08/18 11:20 10/08/18 11:20 10/08/18 11:20 10/08/18 11:20 Exam: Skin: Free of rash and discoloration. Eyes: Sclera is white. There is no discharge from eyes. ENMT: Oral/pharyngeal mucosa is normal in appearance. There is no discharge from nose or ears. Respiratory: Normal breath sounds with no crackles and wheezes bilaterally. CV: Heart is regular with no gallop or murmur. GI: Abdomen is flat and soft with no palpable mass or visceromegaly. : There is no tenderness in patient's flanks bilaterally. Neuro exam: He has good strength in upper and lower extremities. He has normal eye movements. Psychiatric: He has normal affect. His thought process is appropriate to the situation. - Assessment and Plan (1) Chest pain Current Visit: Yes Status: Acute Assessment and Plan: Patient experienced left-sided chest pain which was intermittent and worse on inspiration relieved with baby aspirin. Troponins negative 3 EKG with no acute ST-T wave abnormalities Continue with aspirin and metoprolol and nitroglycerin as needed for chest pain cardiac echo LVEF 65%. Mild left ventricular diastolic dysfunction. Normal right ventricular structure and function. Mild aortic regurgitation. Mildly sclerotic aortic valve leaflets. Very small, somewhat mobile echo-density observed associated with the NCC of the aortic valve may represent Lambl's Excrescence. Recommend clinical correlation. Mild tricuspid regurgitation. Mild pulmonic regurgitation. No pulmonary hypertension. 10/08 Patient does not have any chest pain at this time troponins have been negative 3 EKG with no acute ST-T wave abnormalities. Patient did undergo LUKE today and due to sedation from procedure she will undergo stress test in the a.m. Continue with aspirin and statin beta kari and nitroglycerin as needed for chest pain (2) HTN (hypertension) Current Visit: No Status: Chronic Assessment and Plan: Continue home medications (3) Graves disease Current Visit: Yes Status: Acute Assessment and Plan: Patient follows with Dr. 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 Very small, somewhat mobile echo-density observed associated with the NCC of the aortic valve may represent Lambl's Excrescence. Recommend clinical correlation. Discussed findings with cardiology recommending LUKE if clinically indicated Currently patient is a focal deficits however does endorse patient experiencing episodes of slurred speech at times occurring briefly over the past few weeks. We will continue with aspirin Give 1 dose of lovenox 1mg per kg for anticoagulation Discussed finding with patient and daughter who are in agreement with LUKE- patient will be nothing by mouth after midnight for possible LUKE in a.m. We will check CT of head without contrast for any possible infarct/bleed acute or remote 10/08 CT of head was completed with nothing acute Underwent LUKE today results are pending - Time Spent with Patient Total time spent is greater than 50% in coordination of care (as documented) at patient's floor/unit and/or counseling patient: Internal Medicine: Result - Labs CBC & Chem 7: 10/08/18 02:14 10/08/18 02:14 Labs: Short CBC 10/08/18 Range/Units 02:14 WBC 4.9 (4.3-11.1) K/mcL Hgb 10.7 L (11.5-15.4) g/dL Hct 33.6 L (35.3-44.9) % Plt Count 199 (140-400) K/mcL Neutrophils # 2.2 (1.6-8.9) K/mcL BMP 10/08/18 02:14 Sodium 140 Potassium 3.9 Chloride 106 Carbon Dioxide 27 BUN 22 Creatinine 1.11 Glucose 108 H Calcium 9.1 - ABG Interpretation ABG results: PT/INR, D-dimer PT 12.4 Seconds (9.4-12.1) H 10/08/18 02:14 1406 ng/mLFEU (0-500) H 10/06/18 10:35 - Impressions Impressions Head CT 10/07/18 15:34 IMPRESSION: No acute intracranial abnormality. D/ / Javier Mera MD / Javier eMra MD Interpreting Provider: Javier Mera MD Consult Discharge Plan - Plan Instructions: Transient Ischemic Attack (GEN), Self Care Measures After a Stroke (GEN) Referrals: Gatito Dominique MD [Primary Care Provider] - (Appt has been requested. ) (1) Chest pain Qualifiers: Chest pain type: unspecified Qualified Code(s): R07.9 - Chest pain, unspecified (2) HTN (hypertension) Qualifiers: Hypertension type: essential hypertension Qualified Code(s): I10 - Essential (primary) hypertension
--- NOTE | 2018-10-08 15:50 | Electrocardiograph Report ---
[place] [id number] Test Date: 2018-10-07 Pat Name: Laz Sweeney Department: 113 Room: 3B16 Gender: F Cro: : 1935 Requested By: Gemma Barraza Order Number: [id number] Reading MD: Eliane Hi Measurements Intervals [place] Rate: 80 P: 32 [place]: 189 QRS: -14 QRSD: 101 T: 46 QT: 407 QTc: 443 Interpretive Statements SINUS RHYTHM WITH SUPRAVENTRICULAR PREMATURE COMPLEXES ABNORMAL RHYTHM ECG Electronically Signed On 10-08-2018 15:48:48 EDT by Eliane Hi
--- NOTE | 2018-10-08 15:54 | Electrocardiograph Report ---
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
[2018-10-08] MEDS: clonazePAM 1 MG TABLET PO SCH (21:13)
[2018-10-08] MEDS: Erythromycin OPTH Oint BOTH EYES SCH (21:23)
[2018-10-09 02:23] LABS: Calcium 9.1 mg/dL (8.6-10.3)
[2018-10-09] MEDS ORDERED: Regadenoson 0.4 MG/5 ML SYRINGE IVP ONE (07:00)
[2018-10-09] MEDS: Metoprolol XL (24 HR) Succ 25 MG TAB.ER.24H PO SCH (10:57)
[2018-10-09] MEDS: Spironolactone 25 MG TABLET PO SCH (10:57)
[2018-10-09] MEDS: hydroCHLOROthiazide 25 MG TABLET PO SCH (10:57)
[2018-10-09] MEDS: Multivit/Ca/Min/Fe/FA 1 TAB TABLET PO SCH (10:57)
[2018-10-09] MEDS: Aspirin 81 MG TAB.CHEW PO SCH (10:57)
[2018-10-09] MEDS: Furosemide 40 MG TABLET PO SCH (10:57)
[2018-10-09] MEDS: LOTEMAX 0.5% PO SCH (10:58)
[2018-10-09 11:01] VITALS: BP 143/73
[2018-10-09] MEDS: Perphenazine 2 MG TABLET PO PRN (11:02)
[2018-10-09] MEDS: (Mirabegron [Myrbetriq] 50 MG) PO SCH (11:49)
[2018-10-09] MEDS: (Ubidecarenone/Vit E Acetate [Co Q-10 100 Mg Softgel] PO SCH (11:50)
== END 2018-10-09 15:01 | disposition home or self-care (01) ==
LOC: EMEROOARM 10:04 → 3BNU 10:04
PROVIDERS: ADMIT Internal Medicine; ATTEND Internal Medicine

== ENCOUNTER 2021-10-18 13:49 | Observation (INO) ==
[2021-10-18] MEDS ORDERED: Aspirin 325 MG TABLET PO ONE (14:20)
[2021-10-18 14:43] LABS: Basophils % 0.3 %; Eosinophils # 0.1 K/mcL (0.0-0.6); Eosinophils % 1.3 %; Hematocrit 35.3 % (35.3-44.9); Hemoglobin 11.4 g/dL (11.5-15.4); Immature Granulocytes % 0.3 % (0-4); Lymphocytes # 1.2 K/mcL (0.6-4.6); Lymphocytes % 30.8 %; Mean Corpuscular HGB Conc 32.3 g/dL (31.6-35.5); Mean Corpuscular Hemoglobin 29.7 pg (28.0-33.3); Mean Corpuscular Volume 91.9 fL (83.0-100.0); Mean Platelet Volume 11.9 fL (9.4-12.4); Monocytes # 0.5 K/mcL (0.0-1.3); Monocytes % 12.8 %; Neutrophils # 2.2 K/mcL (1.6-8.9); Platelet Count 149 K/mcL (140-400); Red Blood Count 3.84 M/mcL (3.82-4.97); Red Cell Distribution Width 14.6 % (11.5-14.5); Segmented Neutrophils % 54.5 %
[2021-10-18 14:51] LABS: Prothrombin Time 11.6 Seconds (9.4-12.1)
[2021-10-18 14:54] LABS: Activated Partial Thrombo Time 29.5 Seconds (26.0-36.0)
[2021-10-18 15:02] LABS: BUN/Creatinine Ratio 18 (6-26); Blood Urea Nitrogen 19 mg/dL (8-23); Carbon Dioxide 26 mEq/L (23-29); Chloride 105 mEq/L (98-107); Glucose 88 mg/dL (70-105); Osmolality,Calculated 290 (280-300); Potassium 3.9 mEq/L (3.5-5.1); Sodium 139 mEq/L (136-145); eGFR For African Americans 60 (> 60); eGFR For Non-African Americans 49 (> 60)
[2021-10-18 15:03] LABS: Troponin I < 0.03 ng/mL (< 0.04)
[2021-10-18] MEDS ORDERED: Acetaminophen 325 MG TABLET PO PRN (15:28)
[2021-10-18] MEDS ORDERED: Ondansetron 4 MG/2 ML VIAL IVP PRN (15:28)
[2021-10-18] MEDS ORDERED: Naloxone 0.4 MG/ML INJ IVP PRN (15:28)
[2021-10-18] MEDS ORDERED: Spironolactone 25 MG TABLET PO SCH (16:00)
[2021-10-18 16:50] LABS: Influenza A PCR Negative (Negative); Influenza B PCR Negative (Negative); Resp. Syncytial Virus PCR Negative (Negative); SARS-CoV-2 by PCR (In House) Negative (Negative)
[2021-10-18] MEDS ORDERED: Nitroglycerin 0.4 MG TAB.SUBL SL PRN (18:30)
[2021-10-18] MEDS: Perphenazine 2 MG TABLET PO SCH (20:22)
[2021-10-18] MEDS ORDERED: clonazePAM 1 MG TABLET PO SCH (21:00)
[2021-10-18 23:09] VITALS: TEMP 97.8
[2021-10-19 03:04] LABS: Basophils % 0.3 %; Eosinophils # 0.1 K/mcL (0.0-0.6); Eosinophils % 1.5 %; Hematocrit 32.4 % (35.3-44.9); Hemoglobin 10.4 g/dL (11.5-15.4); Lymphocytes # 1.2 K/mcL (0.6-4.6); Mean Corpuscular HGB Conc 32.1 g/dL (31.6-35.5); Mean Corpuscular Hemoglobin 29.2 pg (28.0-33.3); Mean Platelet Volume 12.1 fL (9.4-12.4); Monocytes # 0.5 K/mcL (0.0-1.3); Monocytes % 14.3 %; Neutrophils # 1.6 K/mcL (1.6-8.9); Platelet Count 145 K/mcL (140-400); Red Blood Count 3.56 M/mcL (3.82-4.97); Red Cell Distribution Width 14.6 % (11.5-14.5); Segmented Neutrophils % 46.9 %; White Blood Count 3.4 K/mcL (4.3-11.1)
[2021-10-19 03:27] LABS: Calcium 8.8 mg/dL (8.6-10.3); Magnesium 1.8 mg/dL (1.6-2.6); Potassium 3.5 mEq/L (3.5-5.1)
[2021-10-19] MEDS ORDERED: Acetaminophen IV 1,000 MG/100 ML BAG IVPB ONE (05:55)
[2021-10-19 06:50] VITALS: BP 135/86; PULSE 75; O2SAT 96
[2021-10-19] MEDS ORDERED: *HR* Enoxaparin 40 MG/0.4 ML SYRINGE SQ SCH (07:00)
[2021-10-19] MEDS ORDERED: Regadenoson 0.4 MG/5 ML SYRINGE IVP ONE (07:19)
[2021-10-19] MEDS ORDERED: Aspirin Enteric Coated 81 MG Tablet PO SCH (09:00)
[2021-10-19] MEDS ORDERED: Multivit/Ca/Min/Fe/FA 1 TAB TABLET PO SCH (09:00)
[2021-10-19] MEDS ORDERED: Mirabegron [Myrbetriq] 50 MG Tab.Er.24h PO SCH (09:00)
[2021-10-19] MEDS ORDERED: Cyanocobalamin (B-12) 1,000 MCG TABLET PO SCH (09:00)
[2021-10-19] MEDS ORDERED: Furosemide 40 MG TABLET PO SCH (09:00)
[2021-10-19] MEDS: Perphenazine 2 MG TABLET PO SCH (11:56)
== END 2021-10-19 14:59 | disposition home or self-care (01) ==
LOC: EMEROOARM 13:49 → 3BNU 13:49 → SUATTDRO 15:43 → 3BNU 17:14
PROVIDERS: ADMIT Pharmacist; ATTEND Pharmacist